=== PATIENT | female | born 1970 | race Caucasian/White ===

== ENCOUNTER → 2016-08-16 | Outpatient (CLI) | payer OTHER ==
[~2016-08-16] MED LIST: ISOVUE-370 76% 100ML VIAL (Q9967) As Ordered ONE
--- NOTE | 2016-08-16 11:27 | REP ---
Abdominal and pelvic CT angiogram with IV contrast: History: Pelvic congestion syndrome. Comparison CT abdomen and pelvis is from May 01, 2012 done at [facility]. CT technique: Helical scanning is acquired following the intravenous injection of 100 ml of Isovue 370. 3 mm axial images are reformatted. In addition, thick slab maximal intensity projection coronal images are reformatted. Surface rendered 3-D images are generated and reviewed rotationally about the vertical axis. Coronal and sagittal multiplanar reformation images are generated and reviewed. CT angiographic findings: The suprarenal and infrarenal abdominal aorta are widely patent and smooth. The celiac and superior mesenteric artery origins are widely patent. The inferior mesenteric artery origin is unremarkable. Singular non-stenotic renal arteries are seen bilaterally. The right and left common external and internal iliac arteries are widely patent. Common femoral and proximal profunda and proximal superficial femoral arteries are unremarkable bilaterally. The internal iliac arteries demonstrate normal symmetric uterine arterial perfusion. There is no evidence to suggest avascular necrosis. Nonvascular findings: Uterus is retroverted and retroflexed. There are surgical clips in the left inguinal soft tissues. There appears to be a ventral hernia repair. There is some left colonic diverticulosis. Impression: Unremarkable CT abdomen and pelvis angiogram. The uterus is retroverted and retroflexed. Signed by Audi Arceo MD 08/16/2016 01:38 P
== END ==
LOC: M RAD 08:49
PROVIDERS: ATTEND Surgery Vascular Surgery
DX: N94.89 Other specified conditions associated with female genital organs and menstrual cycle (principal)

== ENCOUNTER 2019-01-15 11:35 | Emergency (ER) | payer OTHER ==
[~2019-01-15] VITALS: Ht 175.3 cm; Wt 90.7 kg
[2019-01-15] MEDS ORDERED: NIFE20CA PO (11:42)
[2019-01-15] MEDS ORDERED: MIRA3350 PO (11:42)
[2019-01-15] MEDS ORDERED: FLON1SPR NARES (11:42)
[2019-01-15] MEDS ORDERED: ARIP1TAB4 PO (11:42)
[2019-01-15] MEDS ORDERED: ZYRTTAB8 PO (11:42)
[2019-01-15] MEDS ORDERED: CVS400CA PO (11:42)
[2019-01-15] MEDS ORDERED: FLUO20CA8 PO (11:42)
[2019-01-15 12:45] LABS: BASO # 0.1 10^3/uL (0.0-0.2); BASO % 0.8 % (0.0-1.0); EOS # 0.1 10^3/uL (0.0-0.5); EOS % 1.3 % (0.0-3.0); HEMATOCRIT 43.6 % (36.0-47.0); HEMOGLOBIN 14.4 g/dl (12.0-15.5); LYMPH # 1.1 10^3/uL (1.5-5.0); LYMPH % 14.7 % (24.0-44.0); MEAN CORPUSCULAR HEMOGLOBIN 31.5 pg (27.0-33.0); MEAN CORPUSCULAR VOLUME 95.4 fl (80.0-96.0); MONO # 0.6 10^3/uL (0.0-0.8); MONO % 8.4 % (0.0-5.0); NEUTROPHILS # 5.6 10^3/uL (1.5-8.5); NEUTROPHILS % 74.5 % (36.0-66.0); PLATELET COUNT, AUTOMATED 302 10^3/uL (150-450); RED BLOOD COUNT 4.57 10^6/uL (4.00-5.40); WHITE BLOOD COUNT 7.5 10^3/uL (4.0-10.0)
[2019-01-15 13:22] LABS: ALBUMIN 3.8 GM/DL (3.2-5.2); ALT/SGPT 17 U/L (12-78); BILIRUBIN,DIRECT 0.2 MG/DL (0.0-0.2); BILIRUBIN,TOTAL 0.8 MG/DL (0.2-1.0); BLOOD UREA NITROGEN 16 MG/DL (7-18); CARBON DIOXIDE LEVEL 30 MEQ/L (21-32); CHLORIDE LEVEL 103 MEQ/L (98-107); CREATININE FOR GFR 1.01 MG/DL (0.55-1.30); GLOMERULAR FILTRATION RATE > 60.0 (>58); GLUCOSE, FASTING 84 MG/DL (70-100); LIPASE 68 U/L (73-393); POTASSIUM SERUM 4.3 MEQ/L (3.5-5.1); SODIUM LEVEL 139 MEQ/L (136-145); TOTAL PROTEIN 7.3 GM/DL (6.4-8.2)
[2019-01-15] MEDS ORDERED: ISOVUE-370 76% 100ML VIAL (Q9967) As Ordered ONE (13:29)
--- NOTE | 2019-01-15 14:29 | REP ---
CT abdomen and pelvis with IV and without oral contrast: History: Right lower quadrant pain. Rule out appendicitis. Comparison study: August 16, 2016. CT contrast dose: 100 mL of intravenous Isovue 370 is administered. Findings: Digital preliminary school psychologist radiograph demonstrates embolic coils along the course of the ovarian vein on the left mid and lower abdomen. Bowel gas pattern is normal. The lung bases are clear on axial CT images. The liver and spleen are homogeneous in texture. Normal in size. No focal hepatic lesion is seen. No adrenal lesion is observed. The gallbladder is unremarkable. No pancreatic abnormality is observed. The kidneys enhance symmetrically and are morphologically intact. Normal appendix is seen in the right lower quadrant. [place] artifact is seen from the occlusive coils placed and stacked within the gonadal vein on the left side. The uterus is retroverted and retroflexed. No ovarian abnormality is seen. Urinary bladder is unremarkable. There is evidence of acute inflammation in the hepatic flexure of the colon. There is diverticulosis of the segment of the colon and there is mural thickening and pericolonic fat streaking which is fairly prominent. This is compatible with acute diverticulitis. The appendix is below this level and normal in appearance. There is pancolonic diverticulosis. There is no evidence of abscess or free air. The patient is status post ventral hernia repair. Impression: Findings consistent with acute diverticulitis of the right colon involving the hepatic flexure. No abscess or free air. Normal appendix. Status post periumbilical ventral hernia repair. Pancolonic diverticulosis. 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 Electronically Signed by Audi Arceo MD 01/15/2019 04:53 P
[2019-01-15] MEDS ORDERED: AUGM875T28 PO (14:42)
[2019-01-15] MEDS ORDERED: FLAG500T PO (15:09)
[2019-01-15] MEDS ORDERED: CIPR-249 PO (15:09)
[2019-01-15 15:21] VITALS: BP 136/91
== END 2019-01-15 15:22 | disposition home or self-care (01) ==
LOC: M ED 11:35
DX: K57.32 Diverticulitis of large intestine without perforation or abscess without bleeding (principal); R10.11 Right upper quadrant pain; R10.31 Right lower quadrant pain; R11.0 Nausea; R19.7 Diarrhea, unspecified; N80.9 Endometriosis, unspecified; I73.00 Raynaud's syndrome without gangrene; F41.9 Anxiety disorder, unspecified; F32.9 Major depressive disorder, single episode, unspecified; Z79.899 Other long term (current) drug therapy; Z88.1 Allergy status to other antibiotic agents
CPT/HCPCS: 74177; 80048; 80076; 81001; 83690; 84702; 85025; 87086; 99284; Q9967

== ENCOUNTER 2019-09-21 05:05 | Emergency (ER) | payer OTHER ==
[~2019-09-21] VITALS: Ht 172.7 cm; Wt 90.0 kg
[~2019-09-21 05:05] MED LIST changes: +ARIP1TAB4 PO; +AUGM875T28 PO; +CIPR-249 PO; +CVS400CA PO; +FLAG500T PO; +FLON1SPR NARES; +FLUO20CA20 PO; -ISOVUE-370 76% 100ML VIAL (Q9967) As Ordered ONE; +MIRA3350 PO; +NIFE20CA PO; +ZYRTTAB8 PO
[2019-09-21] MEDS ORDERED: HYOS0.1258 PO (05:11)
[2019-09-21] MEDS ORDERED: GNP200CA2 PO (05:16)
[2019-09-21] MEDS ORDERED: MORPHINE 4 MG/ML 1ML VIAL/SYRINGE (J2270) IV ONE (05:45)
[2019-09-21] MEDS ORDERED: metroNIDAZOLE 500 MG in IV 1 EA IV ONE (05:45)
[2019-09-21] MEDS ORDERED: PIPERACILLIN/TAZOBACTAM SOD 3.375 GM in D5W MINI-BAG PLUS 50 ML IV ONE (05:45)
[2019-09-21] MEDS ORDERED: NS 1,000 ML IV ONE (05:45)
[2019-09-21 06:23] LABS: BASO % 0.3 % (0.0-1.0); EOS # 0.2 10^3/uL (0.0-0.5); EOS % 1.6 % (0.0-3.0); HEMATOCRIT 39.2 % (36.0-47.0); LYMPH # 0.9 10^3/uL (1.5-5.0); LYMPH % 8.4 % (24.0-44.0); MEAN CORPUSCULAR HEMOGLOBIN 31.8 pg (27.0-33.0); MEAN CORPUSCULAR HGB CONC 33.2 g/dl (32.0-36.5); MEAN CORPUSCULAR VOLUME 95.8 fl (80.0-96.0); MONO % 9.2 % (0.0-5.0); NEUTROPHILS # 8.8 10^3/uL (1.5-8.5); NEUTROPHILS % 80.1 % (36.0-66.0); PLATELET COUNT, AUTOMATED 263 10^3/uL (150-450); RED BLOOD COUNT 4.09 10^6/uL (4.00-5.40)
[2019-09-21] MEDS ORDERED: ISOVUE-370 76% 100ML VIAL As Ordered ONE (06:40)
[2019-09-21 06:49] LABS: ALBUMIN 3.4 GM/DL (3.2-5.2); ALT/SGPT 17 U/L (12-78); BILIRUBIN,DIRECT < 0.1 MG/DL (0.0-0.2); BILIRUBIN,TOTAL 0.3 MG/DL (0.2-1.0); LIPASE 67 U/L (73-393); TOTAL PROTEIN 6.7 GM/DL (6.4-8.2)
--- NOTE | 2019-09-21 08:05 | REPVR ---
PROCEDURE INFORMATION: Exam: CT Abdomen And Pelvis With Contrast Exam date and time: 09/21/2019 6:56 AM Age: 49 years old Clinical indication: Abdominal pain; Additional info: Llq pain/eval divertic ds. TECHNIQUE: Imaging protocol: Computed tomography of the abdomen and pelvis with intravenous contrast. Radiation optimization: All CT scans at this facility use at least one of these dose optimization techniques: automated exposure control; mA and/or kV adjustment per patient size (includes targeted exams where dose is matched to clinical indication); or iterative reconstruction. Contrast material: ISOVUE 370; Contrast volume: 100 ml; Contrast route: INTRAVENOUS (IV); COMPARISON: CT ABD/PEL W/IV CONTRAST ONLY 01/15/2019 1:30 PM FINDINGS: Lungs: Minimal bibasilar atelectasis and minimal patchy bilateral lower lobe infiltrates. Liver: Normal. No mass. Gallbladder and bile ducts: Normal. No calcified stones. No ductal dilation. Pancreas: Normal. No ductal dilation. Spleen: Normal. No splenomegaly. Adrenals: Normal. No mass. Kidneys and ureters: Normal. No hydronephrosis. Stomach and bowel: There is resolution of inflammatory change about the hepatic flexure since the prior study. There is new wall thickening involving 4 other areas of the colon. There is an area in the distal transverse colon which demonstrates pericolonic induration extending posteriorly which extends around approximately 3 diverticula which may reflect localized mild diverticulitis of culprit diverticula. There is an additional area in the proximal splenic flexure which demonstrates wall thickening and surrounding induration consistent with diverticulitis. There is slight induration along the medial aspect of the distal descending colon which surrounds a diverticulum suggesting minimal diverticulitis of a culprit diverticulum. There is a 4th area in the distal descending colon with an additional diverticulum which projects posteromedially. Appendix: Retrocecal appendix measuring up to 10 mm with no surrounding induration and is of similar size to the prior study and likely within normal limits. Intraperitoneal space: Unremarkable. No free air. No significant fluid collection. Vasculature: Prominent embolization coils along the caudal aspect of the left gonadal vein extending into the left adnexa. Lymph nodes: Unremarkable. No enlarged lymph nodes. Bladder: Unremarkable as visualized. Reproductive: Unremarkable as visualized. Bones/joints: Healing fractures of the right 8th-12th ribs posteriorly. Soft tissues: Unremarkable. IMPRESSION: 1. Interval resolution of diverticulitis involving the hepatic flexure since 01/15/2019. 2. Three new areas of mild diverticulitis involving the left colon. There is a segment in the distal transverse colon which appears centered around specific diverticula which project posteriorly with the most distal of 3 adjacent diverticula as the most likely culprit diverticulum. The 2nd area is distal transverse colon just proximal to the hepatic flexure and a 3rd area is noted in the descending colon and is centered around specific diverticula which project medially consistent with culprit diverticulum. The 4th focus is in the distal descending colon with induration medially around a specific diverticulum. 3. Status post embolization coils in the left gonadal vein. 4. Relatively large retrocecal appendix measuring up to 10 mm the tip which is of similar size to the prior study and likely reflects a normal variant. Electronically signed by: Wai Rogers On 09/21/2019 08:04:44 AM
[2019-09-21] MEDS ORDERED: FLAG500T PO (08:23)
[2019-09-21] MEDS ORDERED: CIPR-249 PO (08:23)
[2019-09-21 08:52] VITALS: BP 114/75
[2019-09-22] MEDS ORDERED: VITA400T15 PO (01:17)
[2019-09-22] MEDS ORDERED: CETI-24 PO (01:17)
[2019-09-22] MEDS ORDERED: CIPR500T3 PO (01:17)
[2019-09-22] MEDS ORDERED: HYOS1TAB PO (01:17)
[2019-09-22] MEDS ORDERED: FLUO10TA2 PO (01:17)
[2019-09-22] MEDS ORDERED: NIFE30TA50 PO (01:17)
[2019-09-22] MEDS ORDERED: FLAG500T PO (01:17)
== END 2019-09-21 08:58 | disposition home or self-care (01) ==
LOC: M ED 05:05
DX: K57.32 Diverticulitis of large intestine without perforation or abscess without bleeding (principal); F41.9 Anxiety disorder, unspecified; Z79.899 Other long term (current) drug therapy; Z88.1 Allergy status to other antibiotic agents
CPT/HCPCS: 74177; 80047; 80076; 81001; 83690; 85025; 87088; 87186; 96361; 96365; 96366; 96367; 96375; 99284; J2270; J2543; Q9967

== ENCOUNTER 2019-09-21 22:00 | Inpatient (IN) | payer OTHER ==
[~2019-09-21] VITALS: Ht 172.7 cm; Wt 93.5 kg
[~2019-09-21 22:00] MED LIST changes: +GNP200CA2 PO; +HYOS0.1258 PO
[2019-09-21 22:53] LABS: BASO # 0.1 10^3/uL (0.0-0.2); BASO % 0.4 % (0.0-1.0); EOS # 0.1 10^3/uL (0.0-0.5); EOS % 0.7 % (0.0-3.0); HEMATOCRIT 38.4 % (36.0-47.0); HEMOGLOBIN 12.9 g/dl (12.0-15.5); LYMPH # 0.8 10^3/uL (1.5-5.0); LYMPH % 5.9 % (24.0-44.0); MEAN CORPUSCULAR HEMOGLOBIN 31.9 pg (27.0-33.0); MEAN CORPUSCULAR HGB CONC 33.6 g/dl (32.0-36.5); MONO # 1.1 10^3/uL (0.0-0.8); MONO % 8.9 % (0.0-5.0); NEUTROPHILS # 10.7 10^3/uL (1.5-8.5); NEUTROPHILS % 83.8 % (36.0-66.0); PLATELET COUNT, AUTOMATED 278 10^3/uL (150-450); RED BLOOD COUNT 4.04 10^6/uL (4.00-5.40); WHITE BLOOD COUNT 12.8 10^3/uL (4.0-10.0)
[2019-09-21 23:16] LABS: BLOOD UREA NITROGEN 9 MG/DL (7-18); CALCIUM LEVEL 8.5 MG/DL (8.5-10.1); CARBON DIOXIDE LEVEL 24 MEQ/L (21-32); CHLORIDE LEVEL 106 MEQ/L (98-107); CREATININE FOR GFR 0.87 MG/DL (0.55-1.30); GLOMERULAR FILTRATION RATE > 60.0 (>58); GLUCOSE, FASTING 108 MG/DL (70-100); POTASSIUM SERUM 3.8 MEQ/L (3.5-5.1); SODIUM LEVEL 140 MEQ/L (136-145)
[2019-09-22] MEDS ORDERED: MORPHINE 4 MG/ML 1ML VIAL/SYRINGE (J2270) IV ONE (00:45)
[2019-09-22] MEDS ORDERED: NS 1,000 ML IV ONE (00:45)
[2019-09-22] MEDS ORDERED: ISOVUE-370 76% 100ML VIAL As Ordered ONE (00:58)
[2019-09-22] MEDS ORDERED: PIPERACILLIN/TAZOBACTAM SOD 3.375 GM in D5W MINI-BAG PLUS 50 ML IV ONE (01:00)
[2019-09-22] MEDS ORDERED: metroNIDAZOLE 500 MG in IV 1 EA IV ONE (01:00)
[2019-09-22] MEDS ORDERED: CIPR500T3 PO (01:17)
[2019-09-22] MEDS ORDERED: NIFE30TA50 PO (01:17)
[2019-09-22] MEDS ORDERED: HYOS1TAB PO (01:17)
[2019-09-22] MEDS ORDERED: VITA400T15 PO (01:17)
[2019-09-22] MEDS ORDERED: FLUO10TA2 PO (01:17)
[2019-09-22] MEDS ORDERED: ALL10TAB29 PO (01:17)
[2019-09-22] MEDS ORDERED: FLAG500T PO (01:17)
--- NOTE | 2019-09-22 01:51 | REPVR ---
PROCEDURE INFORMATION: Exam: CT Abdomen And Pelvis With Contrast Exam date and time: 09/22/2019 1:13 AM Age: 49 years old Clinical indication: Abdominal pain; Additional info: Re-eval divertic now kehr's sign TECHNIQUE: Imaging protocol: Computed tomography of the abdomen and pelvis with intravenous contrast. Radiation optimization: All CT scans at this facility use at least one of these dose optimization techniques: automated exposure control; mA and/or kV adjustment per patient size (includes targeted exams where dose is matched to clinical indication); or iterative reconstruction. Contrast material: ISO 370; Contrast volume: 100 ml; Contrast route: INTRAVENOUS (IV); COMPARISON: CT ABD/PEL W/IV CONTRAST ONLY 09/21/2019 6:43 AM FINDINGS: Lungs: Bibasilar dependent and linear atelectasis Liver: Hepatomegaly and steatosis. Gallbladder and bile ducts: Biliary sludge. Pancreas: Normal. No ductal dilation. Spleen: Normal. No splenomegaly. Adrenals: Normal. No mass. Kidneys and ureters: Normal. No hydronephrosis. Stomach and bowel: Diverticulosis of the colon. Multifocal acute diverticulitis is again demonstrated along the distal transverse colon. Possible additional focus of acute diverticulitis along the distal descending colon. Appendix: Fluid-filled borderline distended appendiceal tip without periappendiceal inflammatory changes. Intraperitoneal space: No drainable abscess or gross pneumoperitoneum is appreciated. Vasculature: Coiling of the left gonadal vein. Lymph nodes: Unremarkable. No enlarged lymph nodes. Bladder: Unremarkable as visualized. Reproductive: Unremarkable as visualized. Bones/joints: Multilevel degenerative disease and facet hypertrophy of the thoracolumbar spine. Age-indeterminate probably subacute fractures of multiple right posterior ribs age-indeterminate probably subacute fractures of the right L1 transverse process. Soft tissues: Evidence of mesh repair of ventral abdominal wall hernia. IMPRESSION: No significant interval change. Diverticulosis of the colon. Multifocal acute diverticulitis is again demonstrated along the distal transverse and mid to distal descending colon. No drainable abscess or gross pneumoperitoneum is appreciated. Electronically signed by: Miki Driscoll On 09/22/2019 01:50:26 AM
--- NOTE | 2019-09-22 02:12 | HPEPDOC ---
[facility] Medical History & Physical Date of Admission Sep 22, 2019 Date of Service: Sep 22, 2019 Other Provider Mare Renteria Attending Physician: GILDA MALONE MD History and Physical TIME OF SERVICE: 230AM CC abdominal pain HPI This 49 yr old F initially presented with diffuse 8/10 in severity abdominal pain and back pain that radiates to her shoulders last night. She also had non bloody diarrhea that did not have pus. She was released from ER during the day with antibiotics and instructions to stick to a CLD. This evening she returned today with c/o of worsening abdominal pain associated with nausea, fevers, and chills. She denies vomiting, denies having joint pain or any rashes. She had similar pain about 12 years ago when she was diagnosed with a ruptured diverticula and required ex lap along with colostomy placement that was reversed 4 months later. ROS negative except as listed in HPI PMH/PSH x 3 Ventral Hernia repairs x2 Ruptured diverticula requiring ex lap with temporary colostomy placement "coiling of the veins in the abdomen" she is not sure which organ (CT reports coiling of left gonadal vein) denies CAD, DM, HTN, Dyslipidemia SH - Tobacco + Alcohol 3-4 x a week FMH HTN CAD MEDS see below ALLERGIES see below PHYSICAL EXAM Vital Signs Date Time Temp Pulse Resp B/P (MAP) Pulse Ox O2 Delivery O2 Flow Rate FiO2 09/21/19 22:01 100.3 184 20 131/78 (95) 95 Room Air GEN:NAD INTEGUMENT: Flushed / not diaphoretic HEENT: NCAT CVS: RRR/NMRG/ radial pulses diminished LUNGS: CTAB on RA ABD: mid abdominal and right lower abdominal post surgical atrophic scars / soft / tender w percussion NEURO: CN 2-12 intact / speech not dysarthric PSYCH:A&Ox 3 / able to understand and follow all commands LABS Immature Granulocyte % (Auto) 0.3, Neutrophils (%) (Auto) 83.8H, Lymphocytes (%) (Auto) 5.9L, Monocytes (%) (Auto) 8.9H, Eosinophils (%) (Auto) 0.7, Basophils (%) (Auto) 0.4, Neutrophils # (Auto) 10.7H, Lymphocytes # (Auto) 0.8L, Monocytes # (Auto) 1.1H, Eosinophils # (Auto) 0.1, Basophils # (Auto) 0.1, Nucleated Red Blood Cells % (auto) 0.0, Anion Gap 10, Glomerular Filtration Rate > 60.0, Lactic Acid Level 0.8, Calcium Level 8.[address] abd/pelvis "IMPRESSION: No significant interval change. Diverticulosis of the colon. Multifocal acute diverticulitis is again demonstrated along the distal transverse and mid to distal descending colon. No drainable abscess or gross neumoperitoneum is appreciated. " MICROBIOLOGY 09/21/19 Blood Culture, Received Pending ASSESSMENT is a 49 yr old w a hx of ruptured diverticula requiring ex lap and temp colostomy who presented w abdominal pain and diarrhea and will be admitted for management of sepsis 2/2 acute diverticulitis. PLAN 1. Sepsis 2/2 acute diverticulitis SIRS criteria leucocytosis and tachycardia Lactic acid wnl Plan: med surg/ tele/ sepsis protocol w FSBS Q6H (target serum glucose 140 to 160 while acutely ill / LR @ 125ml/H target UOP 30ml/kg/H / f/u VBG target SVO2 70 / switch to Metronidazole and ceftriaxone / ketorolac for abd pain and GI regimen / NPO / day time team may consider Gen Surg Consult if her pain doesn't improve / obtain records from 's office in [place] 2. Obesity w BMI of 30.2 complicates care Plan: f/u A1C 3. HTN ? She denied having HTN Plan: Nifedipine 4. Rib and L1 Fxs She had a fall in May and is under the care of [facility]. CT showed multiple age indeterminate right sided rib fxs along with subacute L1 transverse process fx Plan:c/w Vitamin D / add calcium DVT Px w Lovenox DISPO: home after at least 2 midnight's stay Home Medications Scheduled Cetirizine HCl (Cetirizine HCl) 10 Mg Tablet, 10 MG PO DAILY Ciprofloxacin HCl (Ciprofloxacin HCl) 500 Mg Tablet, 500 MG PO BID STARTED 09/21/2019 Ergocalciferol (Vitamin D2) (Vitamin D2) 10 Mcg (400 Unit) Tablet, 10 MCG PO DAILY Fluoxetine HCl (Fluoxetine HCl) 10 Mg Tablet, 10 MG PO DAILY Metronidazole (Flagyl) 500 Mg Tablet, 500 MG PO Q8H STARTED 09/21/2019 FOR 10 DAYS Nifedipine (Nifedipine ER) 30 Mg Tablet.er, 30 MG PO DAILY Scheduled PRN Hyoscyamine Sulfate (Hyoscyamine Sulfate) 0.125 Mg Tab.rapdis, 0.125 MG PO QID PRN for ANXIETY Ibuprofen (Ibuprofen) 200 Mg Capsule, 600 MG PO Q8H PRN for PAIN Polyethylene Glycol 3350 (Miralax) 119 Gm Powder, 34 GRAM PO DAILY PRN for CONSTIPATION dissolve in water Allergies Coded Allergies: moxifloxacin (Verified Allergy, Unknown, 01/15/19) A-FIB/CHADSVASC A-FIB History Current/History of A-Fib/PAF?: No Current PO Anticoag Therapy: No GILDA MALONE MD Sep 22, 2019 02:12
[2019-09-22] MEDS ORDERED: MAALOX 30 ML SUSP *UDC PO PRN (02:15)
[2019-09-22] MEDS ORDERED: MOM 30ML SUSPENSION UDC PO PRN (02:15)
[2019-09-22] MEDS: LR 1,000 ML IV SCH ×3 (03:12→23:43)
[2019-09-22] MEDS ORDERED: MIRALAX *UNIT DOSE* 17GM PACKET PO PRN (03:15)
[2019-09-22] MEDS ORDERED: HYOSCYAMINE SULFATE 0.125 MG SUBL TABLET PO PRN (03:15)
[2019-09-22 03:26] VITALS: BP 138/80
[2019-09-22] MEDS: KETOROLAC 30 MG/ML 1ML VIAL IV PRN ×3 (03:54→23:43)
[2019-09-22 06:00] VITALS: BP 129/78
[2019-09-22 06:35] LABS: VENOUS BASE EXCESS -1.6 (-2.0-2.0); VENOUS HCO3 23.3 MEQ/L (23.0-27.0); VENOUS O2 SATURATION 85.7 % (60.0-80.0); VENOUS PARTIAL PRESSURE CO2 40.2 mmHg (38.0-50.0); VENOUS PH 7.381 UNITS (7.330-7.430); VENOUS STANDARD HCO3 22.9 MEQ/L; VENOUS TOTAL CO2 24.5 MEQ/L (24.0-28.0)
[2019-09-22 06:36] LABS: HEMATOCRIT 37.3 % (36.0-47.0); HEMOGLOBIN 12.3 g/dl (12.0-15.5); MEAN CORPUSCULAR HEMOGLOBIN 31.9 pg (27.0-33.0); MEAN CORPUSCULAR VOLUME 96.9 fl (80.0-96.0); PLATELET COUNT, AUTOMATED 265 10^3/uL (150-450); RED BLOOD COUNT 3.85 10^6/uL (4.00-5.40); WHITE BLOOD COUNT 10.9 10^3/uL (4.0-10.0)
[2019-09-22 07:08] LABS: BLOOD UREA NITROGEN 7 MG/DL (7-18); CALCIUM LEVEL 8.5 MG/DL (8.5-10.1); CARBON DIOXIDE LEVEL 26 MEQ/L (21-32); CHLORIDE LEVEL 106 MEQ/L (98-107); CREATININE FOR GFR 0.77 MG/DL (0.55-1.30); GLOMERULAR FILTRATION RATE > 60.0 (>58); GLUCOSE, FASTING 88 MG/DL (70-100); POTASSIUM SERUM 3.8 MEQ/L (3.5-5.1); SODIUM LEVEL 140 MEQ/L (136-145)
[2019-09-22] MEDS: cefTRIAXone SOD 1 GM in D5W MINI-BAG PLUS 50 ML IV SCH (07:45)
[2019-09-22] MEDS: metroNIDAZOLE 500 MG in IV 1 EA IV SCH ×3 (08:53→20:50)
[2019-09-22] MEDS: ENOXAPARIN 40MG/0.4ML SYRINGE (J1650 PER 10MG) SC SCH (08:54)
[2019-09-22] MEDS: CALCIUM CARBONATE 500 MG CHEW U/D PO SCH (08:54)
[2019-09-22] MEDS: NIFEdipine 30 MG XL TAB PO SCH (08:56)
[2019-09-22] MEDS: FLUoxetine 10 MG CAP PO SCH (08:56)
[2019-09-22] MEDS: VITAMIN D (CHOLECALCIFEROL) 400 INTERNATIONAL UNITS TAB PO SCH (08:56)
[2019-09-22 14:00] VITALS: BP 127/79
[2019-09-22] MEDS: ACETAMINOPHEN TAB 650MG DOSE (2X325MG) PO PRN ×2 (15:42→20:50)
--- NOTE | 2019-09-22 16:45 | IPNPDOC ---
Text Note Date of Service The patient was seen on 09/22/19. NOTE Subjective: Patient stated that her abdominal pain and nausea improved. He de nied fever, chills, vomiting, chest pain, diarrhea or dysuria General - NAD Eyes - PERRLA, EOM intact Neck - No noticeable or palpable swelling, redness or rash around throat or on face Lymph Nodes - No lymphadenopathy Cardiovascular - RRR no m/r/g, no JVD, no carotid bruits Lungs - Clear to auscultation, no use of accessory muscles, no crackles or wheezes. Skin - No rashes, skin warm and dry, no erythematous areas Abdomen -mild diffuse abdominal pain more on the left lower quadrant Extremities - No edema, cyanosis or clubbing Musculoskeletal - 5/5 strength, normal range of motion, no swollen or erythematous joints. Neurological Alert and oriented x 3, CN 2-12 grossly intact Assessment and plan is a 49 yr old w a hx of ruptured diverticula requiring ex lap and temp colostomy who presented w abdominal pain and diarrhea and will be admitted for management of sepsis 2/2 acute diverticulitis. Treatment of antibiotics started Sepsis 2/2 acute diverticulitis Patient had leukocytosis and tachycardia on admission Resolved for now Acute diverticulitis Continue antibiotic therapy Symptoms improved today Will start clear liquid diet Pain management Obesity w BMI of 30.2 complicates care Rib and L1 Fxs She had a fall in May and is under the care of [facility]. CT showed multiple age indeterminate right sided rib fxs along with subacute L1 transverse process fx Plan:c/w Vitamin D / add calcium VS,Fishbone, I+O VS, Fishbone, I+O Laboratory Tests 09/21/19 22:45 09/22/19 05:52 Vital Signs Date Time Temp Pulse Resp B/P (MAP) Pulse Ox O2 Delivery O2 Flow Rate FiO2 09/22/19 14:00 98.7 100 18 127/79 (95) 93 Room Air I&O- Last 24 Hours up to 6 AM 09/22/19 05:59 Intake Total 2300 ml Output Total 0 ml Balance 2300 ml BALTAZAR MATHEWS DO Sep 22, 2019 16:45
[2019-09-22 22:00] VITALS: BP 145/92
[2019-09-23] MEDS: metroNIDAZOLE 500 MG in IV 1 EA IV SCH ×4 (02:39→20:05)
[2019-09-23 06:00] VITALS: BP 130/77
[2019-09-23 06:02] LABS: HEMOGLOBIN 12.7 g/dl (12.0-15.5); MEAN CORPUSCULAR HEMOGLOBIN 32.2 pg (27.0-33.0); MEAN CORPUSCULAR HGB CONC 33.4 g/dl (32.0-36.5); MEAN CORPUSCULAR VOLUME 96.2 fl (80.0-96.0); PLATELET COUNT, AUTOMATED 295 10^3/uL (150-450); RED BLOOD COUNT 3.95 10^6/uL (4.00-5.40); WHITE BLOOD COUNT 6.6 10^3/uL (4.0-10.0)
[2019-09-23 06:19] LABS: BLOOD UREA NITROGEN 4 MG/DL (7-18); CALCIUM LEVEL 8.7 MG/DL (8.5-10.1); CARBON DIOXIDE LEVEL 27 MEQ/L (21-32); CHLORIDE LEVEL 109 MEQ/L (98-107); CREATININE FOR GFR 0.76 MG/DL (0.55-1.30); GLOMERULAR FILTRATION RATE > 60.0 (>58); GLUCOSE, FASTING 102 MG/DL (70-100); POTASSIUM SERUM 3.3 MEQ/L (3.5-5.1); SODIUM LEVEL 142 MEQ/L (136-145)
[2019-09-23] MEDS: LR 1,000 ML IV SCH ×3 (08:18→20:06)
[2019-09-23] MEDS: cefTRIAXone SOD 1 GM in D5W MINI-BAG PLUS 50 ML IV SCH (08:18)
[2019-09-23] MEDS: FLUoxetine 10 MG CAP PO SCH (08:20)
[2019-09-23] MEDS: CALCIUM CARBONATE 500 MG CHEW U/D PO SCH (08:20)
[2019-09-23] MEDS: VITAMIN D (CHOLECALCIFEROL) 400 INTERNATIONAL UNITS TAB PO SCH (08:20)
[2019-09-23] MEDS: ENOXAPARIN 40MG/0.4ML SYRINGE (J1650 PER 10MG) SC SCH (08:21)
[2019-09-23] MEDS: NIFEdipine 30 MG XL TAB PO SCH (08:21)
[2019-09-23] MEDS ORDERED: KCL 10MEQ/100ML SWI (KRUN) 10 MEQ in IV 1 EA IV ONE (10:30)
[2019-09-23 14:00] VITALS: BP 139/88
--- NOTE | 2019-09-23 16:14 | IPNPDOC ---
Date Seen The patient was seen on 09/23/19. Progress Note Subjective: 49 y/o F came to ER c/o abdominal pain was admitted for sepsis secondary to acute diverticulitis. Pt c/o diarrhea, Denied abdominal pain. Physical examination General - NAD Eyes - PERRLA, oral mucosa moist Neck -supple Cardiovascular - RRR Lungs - Clear to auscultation, no use of accessory muscles, no crackles or wheezes. Skin - No rashes, no erythematous areas Abdomen -soft, non tender, normal bowel sounds heard Extremities - No edema Neurological Alert and oriented x 3, CN 2-12 grossly intact, no focal deficit Assessment and plan Sepsis 2/2 acute diverticulitis Resolved Acute diverticulitis Continue iv antibiotic advance diet as tolerated ivf Obesity w BMI of 30.2 supportive care Rib and L1 Fxs She had a fall in May and is under the care of [facility]. CT showed multiple age indeterminate right sided rib fxs along with subacute L1 transverse process fx Plan:c/w Vitamin D / add calcium VS, I&O, 24H, Fishbone Vital Signs/I&O Vital Signs Date Time Temp Pulse Resp B/P (MAP) Pulse Ox O2 Delivery O2 Flow Rate FiO2 09/23/19 14:00 98.9 107 18 139/88 (105) 96 Room Air I&O- Last 24 Hours up to 6 AM 09/23/19 05:59 Intake Total 3650 ml Output Total 2200 ml Balance 1450 ml Laboratory Data 24H LABS Laboratory Tests 2 09/22/19 17:45: Bedside Glucose (Misc Panel) 99 09/22/19 23:34: Bedside Glucose (Misc Panel) 99 09/23/19 05:27: Bedside Glucose (Misc Panel) 94 09/23/19 05:45: Nucleated Red Blood Cells % (auto) 0.0, Anion Gap 6L, Glomerular Filtration Rate > 60.0, Calcium Level 8.7, Magnesium Level 2.0 09/23/19 12:00: Bedside Glucose (Misc Panel) 73 CBC/BMP Laboratory Tests 09/23/19 05:45 Microbiology Microbiology 09/21/19 Blood Culture - Preliminary, Resulted No growth after 24 hours . All specim... ANNE MARIE ALICIA MD Sep 23, 2019 16:14
[2019-09-23 22:00] VITALS: BP 140/87
[2019-09-24] MEDS: metroNIDAZOLE 500 MG in IV 1 EA IV SCH ×3 (02:09→14:42)
[2019-09-24 06:00] VITALS: BP 128/81
[2019-09-24 08:16] LABS: HEMOGLOBIN 13.6 g/dl (12.0-15.5); MEAN CORPUSCULAR HEMOGLOBIN 32.2 pg (27.0-33.0); MEAN CORPUSCULAR HGB CONC 33.2 g/dl (32.0-36.5); MEAN CORPUSCULAR VOLUME 96.9 fl (80.0-96.0); PLATELET COUNT, AUTOMATED 342 10^3/uL (150-450); RED BLOOD COUNT 4.23 10^6/uL (4.00-5.40); WHITE BLOOD COUNT 6.4 10^3/uL (4.0-10.0)
[2019-09-24] MEDS: CALCIUM CARBONATE 500 MG CHEW U/D PO SCH (08:28)
[2019-09-24] MEDS: VITAMIN D (CHOLECALCIFEROL) 400 INTERNATIONAL UNITS TAB PO SCH (08:28)
[2019-09-24] MEDS: FLUoxetine 10 MG CAP PO SCH (08:28)
[2019-09-24 08:29] VITALS: BP 125/81
[2019-09-24] MEDS: cefTRIAXone SOD 1 GM in D5W MINI-BAG PLUS 50 ML IV SCH (08:29)
[2019-09-24] MEDS: LR 1,000 ML IV SCH ×2 (08:29→14:41)
[2019-09-24] MEDS: NIFEdipine 30 MG XL TAB PO SCH (08:29)
[2019-09-24 08:43] LABS: BLOOD UREA NITROGEN 5 MG/DL (7-18); CALCIUM LEVEL 8.9 MG/DL (8.5-10.1); CARBON DIOXIDE LEVEL 26 MEQ/L (21-32); CHLORIDE LEVEL 107 MEQ/L (98-107); CREATININE FOR GFR 0.88 MG/DL (0.55-1.30); GLOMERULAR FILTRATION RATE > 60.0 (>58); GLUCOSE, FASTING 158 MG/DL (70-100); POTASSIUM SERUM 3.8 MEQ/L (3.5-5.1); SODIUM LEVEL 143 MEQ/L (136-145)
[2019-09-24] MEDS: ENOXAPARIN 40MG/0.4ML SYRINGE (J1650 PER 10MG) SC SCH (08:46)
--- NOTE | 2019-09-24 12:37 | DS.PDOC ---
Discharge Summary General Date of Admission Sep 22, 2019 at 02:12 Date of Discharge 09/24/19 Discharge Summary ADMITTING DIAGNOSES: Sepsis secondary to diverticulitis DISCHARGE DIAGNOSES: Resolved episode of sepsis secondary to diverticulitis COMPLICATIONS/CHIEF COMPLAINT: abdominal pain HOSPITAL COURSE: 49 y/o F initially came to ER c/o abdominal pain, was admitted for sepsis secondary to diverticulitis. Pt was started on iv antibiotics and ivf. Over the course of treatment pt's clinical condition improved and pt started to tolerate regular diet. Pt was seen and examined at bedside on day of discharge. Pt stated that she is feeling fine and did not have any complaint. Pt wants to f/u with PMD for possible surgery referral in view of h/o diverticulitis. As per patient she was evaluated by surgery in past but does not want to have surgery. Pt was clinically and vitally stable at the time of discharge. DISCHARGE MEDICATIONS: Please see below. ALLERGIES: Please see below. PHYSICAL EXAMINATION ON DISCHARGE: GENERAL: Comfortable HEENT: oral mucosa moist NECK: supple CARDIOVASCULAR EXAMINATION: regular rate and rhythm RESPIRATORY EXAMINATION: clear to auscultation ABDOMINAL EXAMINATION: soft, non tender, normal bowel sounds EXTREMITIES: no edema SKIN: no lesion NEUROLOGICAL EXAMINATION: no focal deficit PSYCHIATRIC EXAMINATION: mood normal IMAGING: CT abdomen PROGNOSIS: good DISCHARGE CONDITION: good TIME SPENT ON DISCHARGE: 35 minutes. Vital Signs/I&Os Vital Signs Date Time Temp Pulse Resp B/P (MAP) Pulse Ox O2 Delivery O2 Flow Rate FiO2 09/24/19 08:29 125/81 09/24/19 06:00 98.1 83 18 91 Room Air I&O- Last 24 Hours up to 6 AM 09/24/19 06:00 Intake Total 5090 ml Output Total 3750 ml Balance 1340 ml Laboratory Data Labs 24H Laboratory Tests 2 09/23/19 16:50: Bedside Glucose (Misc Panel) 95 09/23/19 23:43: Bedside Glucose (Misc Panel) 88 09/24/19 07:59: Nucleated Red Blood Cells % (auto) 0.0, Anion Gap 10, Glomerular Filtration Rate > 60.0, Calcium Level 8.9 09/24/19 10:50: 09/24/19 12:02: Bedside Glucose (Misc Panel) 72 CBC/BMP Laboratory Tests 09/24/19 07:59 FSBS Laboratory Tests Test 7/14/20 16:50 09/23/19 23:43 09/24/19 12:02 Range/Units Bedside Glucose (Misc Panel) 95 88 72 70-105 MG/DL Microbiology Microbiology 09/21/19 Blood Culture - Preliminary, Resulted No Growth after 48 hours. All Specime... Discharge Medications Scheduled Cetirizine HCl (Cetirizine HCl) 10 Mg Tablet, 10 MG PO DAILY, (Reported) Ciprofloxacin HCl (Ciprofloxacin HCl) 500 Mg Tablet, 1 TAB PO BID Ergocalciferol (Vitamin D2) (Vitamin D2) 10 Mcg (400 Unit) Tablet, 10 MCG PO DAILY, (Reported) Fluoxetine HCl (Fluoxetine HCl) 10 Mg Tablet, 10 MG PO DAILY, (Reported) Metronidazole (Flagyl) 500 Mg Tablet, 500 MG PO Q8H FOR 10 DAYS Nifedipine (Nifedipine ER) 30 Mg Tablet.er, 30 MG PO DAILY, (Reported) Scheduled PRN Hyoscyamine Sulfate (Hyoscyamine Sulfate) 0.125 Mg Tab.rapdis, 0.125 MG PO QID PRN for ANXIETY, (Reported) Ibuprofen (Ibuprofen) 200 Mg Capsule, 600 MG PO Q8H PRN for PAIN, (Reported) Polyethylene Glycol 3350 (Miralax) 119 Gm Powder, 34 GRAM PO DAILY PRN for CONSTIPATION, (Reported) dissolve in water Allergies Coded Allergies: moxifloxacin (Verified Allergy, Unknown, 01/15/19) ANNE MARIE ALICIA MD Sep 24, 2019 12:37
[2019-09-24] MEDS ORDERED: CIPR500T3 PO (12:41)
[2019-09-24] MEDS ORDERED: FLAG500T PO (12:41)
[2019-09-24 14:00] VITALS: BP 124/81
== END 2019-09-24 15:27 | disposition home or self-care (01) | DRG 720 ==
LOC: M ED 22:00 → M ED INP 09-22 02:12 → ENRESERV 09-22 02:33 → M MSPAV 09-22 03:28
PROVIDERS: ADMIT Internal Medicine; ATTEND Internal Medicine
DX: A41.9 Sepsis, unspecified organism (principal); K57.92 Diverticulitis of intestine, part unspecified, without perforation or abscess without bleeding; I10 Essential (primary) hypertension; Z79.899 Other long term (current) drug therapy; Z88.8 Allergy status to other drugs, medicaments and biological substances; E66.9 Obesity, unspecified; Z68.30 Body mass index [BMI] 30.0-30.9, adult

== ENCOUNTER 2019-12-03 14:05 | Emergency (ER) | payer OTHER ==
[~2019-12-03] VITALS: Ht 175.3 cm; Wt 91.0 kg
[~2019-12-03 14:05] MED LIST changes: +CETI-24 PO; +CIPR500T3 PO; +FLUO10TA2 PO; +HYOS1TAB PO; +NIFE30TA50 PO; +VITA400T15 PO
[2019-12-03] MEDS ORDERED: AMOX500T2 (14:32)
[2019-12-03] MEDS ORDERED: FLUTISP (14:32)
[2019-12-03 14:40] LABS: BASO % 0.3 % (0.0-1.0); EOS # 0.1 10^3/uL (0.0-0.5); EOS % 0.7 % (0.0-3.0); HEMATOCRIT 43.5 % (36.0-47.0); HEMOGLOBIN 14.5 g/dl (12.0-15.5); LYMPH # 0.6 10^3/uL (1.5-5.0); LYMPH % 3.7 % (24.0-44.0); MEAN CORPUSCULAR HEMOGLOBIN 31.9 pg (27.0-33.0); MEAN CORPUSCULAR HGB CONC 33.3 g/dl (32.0-36.5); MEAN CORPUSCULAR VOLUME 95.8 fl (80.0-96.0); MONO # 0.9 10^3/uL (0.0-0.8); MONO % 5.9 % (0.0-5.0); NEUTROPHILS # 13.4 10^3/uL (1.5-8.5); PLATELET COUNT, AUTOMATED 293 10^3/uL (150-450); RED BLOOD COUNT 4.54 10^6/uL (4.00-5.40)
[2019-12-03] MEDS ORDERED: NS 1,000 ML IV ONE (14:45)
[2019-12-03] MEDS ORDERED: PANTOPRAZOLE 40MG VIAL (C9113 PER 1) IV ONE (14:45)
[2019-12-03] MEDS ORDERED: MORPHINE 2 MG/ML 1ML VIAL (J2270) IV ONE (14:45)
[2019-12-03 15:13] LABS: ALBUMIN 3.4 GM/DL (3.2-5.2); BILIRUBIN,DIRECT 0.4 MG/DL (0.0-0.2); BILIRUBIN,TOTAL 1.2 MG/DL (0.2-1.0); CALCIUM LEVEL 9.1 MG/DL (8.5-10.1); CREATININE FOR GFR 1.06 MG/DL (0.55-1.30); GLOMERULAR FILTRATION RATE 58.7 (>58); POTASSIUM SERUM 3.6 MEQ/L (3.5-5.1); TOTAL PROTEIN 6.7 GM/DL (6.4-8.2)
[2019-12-03] MEDS ORDERED: ONDANSETRON 4MG/2ML VIAL As Ordered ONE (15:24)
[2019-12-03 15:27] LABS: INR 1.06
[2019-12-03] MEDS ORDERED: ONDANSETRON 4MG/2ML VIAL IV ONE (15:30)
--- NOTE | 2019-12-03 15:38 | REPVR ---
PROCEDURE INFORMATION: Exam: CT Abdomen And Pelvis Without Contrast Exam date and time: 12/03/2019 3:01 PM Age: 49 years old Clinical indication: Abdominal pain; Localized; Left lower quadrant (llq); Additional info: Llq pain TECHNIQUE: Imaging protocol: Computed tomography of the abdomen and pelvis without contrast. Radiation optimization: All CT scans at this facility use at least one of these dose optimization techniques: automated exposure control; mA and/or kV adjustment per patient size (includes targeted exams where dose is matched to clinical indication); or iterative reconstruction. COMPARISON: CT ABD/PEL W/IV CONTRAST ONLY 09/22/2019 1:10 AM FINDINGS: Lungs: Bibasilar mild pulmonary subsegmental atelectasis is present. Liver: Normal. No mass. Gallbladder and bile ducts: The gallbladder transverse lumen measures 4.4 cm. No gallstones identified. No gallbladder wall thickening or pericholecystic fluid additional lysed. The extrahepatic bile ducts are mildly dilated, measuring 10.0 mm. No ductal calculus identified. Pancreas: Normal. No ductal dilation. Spleen: Normal. No splenomegaly. Adrenals: Normal. No mass. Kidneys and ureters: Normal. No hydronephrosis. Stomach and bowel: Inflammation of the distal transverse colon previously demonstrated has resolved. Moderate wall thickening and pericolonic fascial thickening of the descending colon over a relatively long segment. Numerous diverticula present. Appendix: The vermiform appendix is borderline prominent in caliber, without evidence of appendicitis. Intraperitoneal space: Unremarkable. No free air. No significant fluid collection. Vasculature: Calcified phleboliths are present in the lower pelvis bilaterally. Lymph nodes: No enlarged lymph nodes. Urinary bladder: Unremarkable as visualized. Reproductive: Previous left ovarian vein endovascular coiling. Bones/joints: L5-S1 degenerative disc disease, mild right spondylosis. Mild T11-12 spondylosis. Soft tissues: Unremarkable. IMPRESSION: 1. Abnormal descending colon. Differential diagnosis includes colitis (including infectious and ischemic) and diverticulitis. Clinical correlation is recommended. 2. Mild gallbladder luminal distension. 3. Mild stable extrahepatic biliary ductal dilatation. Electronically signed by: Israel Cuevas On 12/03/2019 15:38:06 PM
[2019-12-03] MEDS ORDERED: NORC1TAB7 PO (16:43)
[2019-12-03] MEDS ORDERED: ZOFR4TAB16 PO (16:45)
[2019-12-03 17:05] VITALS: BP 101/58
--- NOTE | 2019-12-04 20:49 | ECGEPIP ---
[facility] - ED Test Date: 2019-12-03 Pat Name: ERICA DENNEY Department: Room: - Gender: Female Optimization Manager: arpan : [id number] Requested By: JULIANA Griggs Order Number: [id number] Reading MD: Christina Thomas Measurements Intervals [place] Rate: 88 P: 61 TN: 136 QRS: 54 QRSD: 80 T: 68 QT: 363 QTc: 441 Interpretive Statements SINUS RHYTHM NSTTW ABNORMALITY NO PRIOR Electronically Signed on 12-04-2019 20:48:30 EDT by Christina Thomas
--- NOTE | 2019-12-05 16:46 | ED PDOC ---
Post-Departure Follow-Up blaise guzman faxed formal report of ct abd/p for fu Humberto Santo MD Dec 05, 2019 16:46
== END 2019-12-03 17:08 | disposition home or self-care (01) ==
LOC: M ED 14:05
DX: K57.32 Diverticulitis of large intestine without perforation or abscess without bleeding (principal); I10 Essential (primary) hypertension; Z88.1 Allergy status to other antibiotic agents; Z79.899 Other long term (current) drug therapy
CPT/HCPCS: 74176; 80048; 80076; 83605; 83690; 85025; 85610; 87040; 93005; 96361; 96374; 96375; 99284; C9113; J2270; J2405

== ENCOUNTER 2023-05-24 02:43 | Emergency (ER) | payer OTHER ==
[~2023-05-24] VITALS: Ht 172.7 cm; Wt 86.4 kg
[~2023-05-24 02:43] MED LIST changes: +AMOX500T2; +FLUO-96 PO; -FLUO10TA2 PO; +FLUO1TAB PO; -FLUO20CA20 PO; +FLUTISP EN; -GNP200CA2 PO; +IBUP200C90 PO; +NIFE-3 PO; -NIFE30TA50 PO; +NORC1TAB7 PO; +ZOFR4TAB16 PO
[2023-05-24] MEDS: KETOROLAC 30 MG/ML 1ML VIAL IV ONE (03:23)
[2023-05-24] MEDS: ONDANSETRON 4MG 2ML VIAL IV ONE (03:23)
[2023-05-24 03:27] LABS: BASO # 0.1 10^3/uL (0.0-0.2); BASO % 0.7 % (0.0-1.0); EOS # 0.1 10^3/uL (0.0-0.5); EOS % 1.5 % (0.0-3.0); HEMATOCRIT 42.1 % (36.0-47.0); LYMPH # 1.2 10^3/uL (1.5-5.0); LYMPH % 13.9 % (24.0-44.0); MEAN CORPUSCULAR HGB CONC 33.3 g/dl (32.0-36.5); MEAN CORPUSCULAR VOLUME 90.3 fl (80.0-96.0); MONO # 0.6 10^3/uL (0.0-0.8); MONO % 7.1 % (2.0-8.0); NEUTROPHILS # 6.8 10^3/uL (1.5-8.5); NEUTROPHILS % 76.5 % (36.0-66.0); PLATELET COUNT, AUTOMATED 328 10^3/uL (150-450); RED BLOOD COUNT 4.66 10^6/uL (4.00-5.40); WHITE BLOOD COUNT 8.9 10^3/uL (4.0-10.0)
[2023-05-24 03:50] LABS: LIPASE 25 U/L (12-53)
[2023-05-24 03:52] LABS: ALKALINE PHOSPHATASE 76 U/L (46-116); ALT/SGPT 16 U/L (7.0-40); AST/SGOT 11 U/L (<34); BILIRUBIN,DIRECT 0.2 MG/DL (<0.4); BILIRUBIN,TOTAL 0.6 MG/DL (0.3-1.2); BLOOD UREA NITROGEN 11 MG/DL (9-23); CALCIUM LEVEL 9.9 MG/DL (8.5-10.1); CARBON DIOXIDE LEVEL 26 MMOL/L (20-31); CHLORIDE LEVEL 103 MMOL/L (98-107); GLOMERULAR FILTRATION RATE > 60.0 (>51); GLUCOSE, FASTING 115 MG/DL (60-100); SODIUM LEVEL 140 MMOL/L (136-145)
[2023-05-24 04:06] LABS: RSV AMPLIFICATION NEGATIVE (NEGATIVE)
[2023-05-24] MEDS ORDERED: GASTROGRAFIN SOLUTION 30ML As Ordered ONE (05:07)
[2023-05-24] MEDS: GASTROGRAFIN SOLUTION 30ML PO SCH (05:15)
[2023-05-24] MEDS: METOCLOPRAMIDE INJ 10MG/2ML VIAL IV ONE (05:16)
[2023-05-24 05:57] VITALS: BP 112/72; TEMP 97.8; O2SAT 98
[2023-05-24] MEDS ORDERED: ISOVUE-370 76% 100ML VIAL As Ordered ONE (07:10)
[2023-05-24] MEDS ORDERED: PANT40TA29 PO (08:12)
[2023-05-24] MEDS ORDERED: LORA-1041 PO (08:12)
[2023-05-24] MEDS ORDERED: D3 S1CAP3 PO (08:12)
[2023-05-24] MEDS ORDERED: PSEU30TA86 PO (08:12)
[2023-05-24] MEDS ORDERED: TRIA1CR80 TOP (08:13)
[2023-05-24] MEDS ORDERED: HOME MED LIST COMPLETE! XX SCH (08:15)
== END 2023-05-24 09:23 | disposition home or self-care (01) ==
LOC: M ED 02:43
DX: K56.41 Fecal impaction (principal); I10 Essential (primary) hypertension; F32.A Depression, unspecified; Z88.1 Allergy status to other antibiotic agents; Z79.51 Long term (current) use of inhaled steroids; Z79.811 Long term (current) use of aromatase inhibitors; Z79.899 Other long term (current) drug therapy
CPT/HCPCS: 74177; 80048; 80076; 83605; 83690; 85025; 87040; 87631; 96374; 96375; 99284; J1885; J2405; J2765; Q9967

== ENCOUNTER → 2023-07-30 | Outpatient (CLI) | payer OTHER ==
[~2023-07-30] MED LIST changes: +D3 S1CAP3 PO; +GASTROGRAFIN SOLUTION 30ML ONE; +LORA-1041 PO; +PANT40TA29 PO; +PSEU30TA87 PO; +TRIA1CR80 TOP
== END ==
LOC: M PLAIMG 09:19
PROVIDERS: ATTEND Surgery
DX: K43.2 Incisional hernia without obstruction or gangrene (principal)
CPT/HCPCS: 74176; Q9963

== ENCOUNTER → 2023-11-16 | Outpatient (REF) | payer OTHER ==
[~2023-11-16] MED LIST changes: -GASTROGRAFIN SOLUTION 30ML ONE; -HYOS0.1258 PO; +HYOS0.1289 PO; +NIFE1CAP2 PO; -NIFE20CA PO
== END ==
LOC: M SFHCDERM 11:01
PROVIDERS: ATTEND Nurse Practitioner Family
DX: D04.61 Carcinoma in situ of skin of right upper limb, including shoulder (principal)

== ENCOUNTER → 2024-03-10 | Outpatient (REF) ==
[~2024-03-10] MED LIST changes: -HYOS0.1289 PO; +HYOS0.1297 PO
== END ==
LOC: M CAHLAB 21:48 → M LAB REF 21:48
DX: Z00.00 Encounter for general adult medical examination without abnormal findings (principal)